=== PATIENT | female | born 1965 | race African-American/Black ===

== ENCOUNTER 2018-01-20 13:26 | Emergency (ER) | payer OTHER ==
[~2018-01-20] VITALS: Ht 167.6 cm; Wt 95.0 kg
[~2018-01-20 13:26] MED LIST: ATEN50TA PO; LISI-604 PO
[2018-01-20 15:10] LABS: BASOPHILS % 0.7 % (0.0-2.0); EOSINOPHILS % 0.6 % (0.0-5.0); HEMATOCRIT. 38.3 % (36.0-48.0); HEMOGLOBIN. 12.1 g/dL (12.0-16.0); LYMPHOCYTES % 27.1 % (20.0-50.0); MEAN CORPUSCULAR HEMOGLOBIN 22.6 pg (28.0-32.0); MEAN CORPUSCULAR VOLUME 71.5 fL (81.0-99.0); MEAN PLATELET VOLUME 10.1 fl (7.4-10.4); MONOCYTES % 6.8 % (2.0-8.0); NEUTROPHILS % 64.8 % (40.0-76.0); PLATELET 210 x1000/uL (130-400); RED BLOOD CELL COUNT 5.36 mill/uL (4.2-5.4)
[2018-01-20 15:13] LABS: CHLORIDE 105 mEq/L (98-107)
[2018-01-20 15:16] LABS: PROTHROMBIN TIME 10.3 sec (9.1-11.1)
[2018-01-20 15:26] LABS: ETHANOL BLOOD < 10 mg/dL
[2018-01-20] MEDS ORDERED: KETOROLAC 15MG/ML VIAL IV ONE (16:15)
[2018-01-20 16:32] VITALS: BP 158/97
== END 2018-01-20 16:32 | disposition home or self-care (01) ==
LOC: ER 13:26
DX: I16.0 Hypertensive urgency (principal); R51 Headache; Z79.899 Other long term (current) drug therapy
CPT/HCPCS: 36415; 70450; 80053; 85025; 85610; 93005; 99284; G0482

== ENCOUNTER 2019-10-15 17:27 | Emergency (ER) | payer OTHER ==
[~2019-10-15] VITALS: Ht 167.6 cm; Wt 101.0 kg
[2019-10-15] MEDS ORDERED: amlodipine (17:33)
[2019-10-15] MEDS ORDERED: atenolo (17:33)
[2019-10-15] MEDS ORDERED: AMLODIPINE 10MG TABLET PO ONE (19:30)
[2019-10-15 19:53] LABS: BASOPHILS % 1.4 % (0.0-2.0); EOSINOPHILS % 0.7 % (0.0-5.0); HEMATOCRIT. 37.7 % (36.0-48.0); HEMOGLOBIN. 11.9 g/dL (12.0-16.0); MEAN CORPUSCULAR HEMOGLOBIN 21.9 pg (28.0-32.0); MEAN CORPUSCULAR VOLUME 69.2 fL (81.0-99.0); MEAN PLATELET VOLUME 10.5 fl (7.4-10.4); MONOCYTES % 7.6 % (2.0-8.0); NEUTROPHILS % 63.3 % (40.0-76.0); PLATELET 178 x1000/uL (130-400); RED BLOOD CELL COUNT 5.45 mill/uL (4.2-5.4); RED CELL DISTRIBUTION WIDTH 17.2 % (11.6-14.6)
[2019-10-15 19:57] LABS: CHLORIDE 105 mEq/L (98-107)
[2019-10-15 20:17] LABS: PLATELET ESTIMATE NORMAL
[2019-10-15 21:12] VITALS: BP 159/97
== END 2019-10-15 21:14 | disposition home or self-care (01) ==
LOC: ER 17:27
DX: I10 Essential (primary) hypertension (principal); M10.9 Gout, unspecified; Z88.8 Allergy status to other drugs, medicaments and biological substances
CPT/HCPCS: 36415; 80053; 85025; 93005; 99284

== ENCOUNTER 2021-02-11 19:03 | Emergency (ER) | payer OTHER ==
[~2021-02-11] VITALS: Ht 177.8 cm; Wt 90.0 kg
[~2021-02-11 19:03] MED LIST changes: -LISI-604 PO; +amlodipine; +atenolo
[2021-02-11 19:51] VITALS: BP 179/111
== END 2021-02-11 20:36 | disposition home or self-care (01) ==
LOC: ER 19:03
DX: R42 Dizziness and giddiness (principal); I10 Essential (primary) hypertension; Z88.8 Allergy status to other drugs, medicaments and biological substances
CPT/HCPCS: 99283

== ENCOUNTER 2024-08-08 01:27 | Emergency (ER) | payer OTHER ==
[~2024-08-08] VITALS: Ht 172.7 cm; Wt 81.0 kg
[2024-08-08 01:29] VITALS: TEMP 36.8; O2SAT 100
[2024-08-08 02:44] LABS: BASOPHILS % 1.2 % (0.0-2.0); EOSINOPHILS % 0.9 % (0.0-5.0); HEMATOCRIT. 38.9 % (36.0-48.0); HEMOGLOBIN. 12.2 g/dL (12.0-16.0); LYMPHOCYTES % 31.5 % (20.0-50.0); MEAN CORPUSCULAR HEMOGLOBIN 21.8 pg (28.0-32.0); MEAN CORPUSCULAR HGB CONC 31.3 g/dL (31.0-37.0); MEAN CORPUSCULAR VOLUME 69.6 fL (81.0-99.0); MEAN PLATELET VOLUME 10.4 fl (7.4-10.4); MONOCYTES % 8.1 % (2.0-8.0); NEUTROPHILS % 58.3 % (40.0-76.0); PLATELET 188 x1000/uL (130-400); RED BLOOD CELL COUNT 5.58 mill/uL (4.2-5.4); RED CELL DISTRIBUTION WIDTH 15.9 % (11.6-14.6); WHITE BLOOD COUNT 10.3 x1000/uL (4.5-11.0)
[2024-08-08 02:50] VITALS: O2SAT 100
[2024-08-08 03:05] LABS: DIFFERENTIAL COMMENT 1
[2024-08-08 03:35] VITALS: BP 172/82; PULSE 88; RESP 16
[2024-08-08] MEDS: IBUPROFEN 800MG TABLET PO ONE (03:35)
[2024-08-08 03:39] LABS: CHLORIDE 102 mEq/L (98-107); POTASSIUM 3.2 mEq/L (3.5-5.1); SODIUM 139 mEq/L (136-145)
[2024-08-08 03:40] LABS: CARBON DIOXIDE 28 mEq/L (21-32)
[2024-08-08 03:41] LABS: CALCIUM 9.8 mg/dL (8.7-10.4)
[2024-08-08 03:45] LABS: CREATININE 0.8 mg/dL (0.6-1.0)
[2024-08-08 03:46] LABS: ETHANOL BLOOD < 10 mg/dL (<10); GLUCOSE 111 mg/dL (70-105); UREA NITROGEN BLOOD 17 mg/dL (9-23)
[2024-08-08 03:53] LABS: D-DIMER 0.46 mg/L FEU (<0.50); PROTHROMBIN TIME 10.6 sec (9.6-11.0)
[2024-08-08 04:44] LABS: TROPONIN I HIGH SENSITIVITY < 4 ng/L (3.0-34)
[2024-08-08] MEDS ORDERED: POTASSIUM CHLORIDE 20MEQ TABLET SR PO SCH (05:00)
[2024-08-08 05:25] LABS: TROPONIN I HIGH SENSITIVITY < 4 ng/L (3.0-34)
== END 2024-08-08 04:44 | disposition home or self-care (01) ==
LOC: ER 01:27
DX: R07.89 Other chest pain (principal); I10 Essential (primary) hypertension; Z79.899 Other long term (current) drug therapy; Z88.8 Allergy status to other drugs, medicaments and biological substances
CPT/HCPCS: 80048; 80320; 83880; 85025; 85379; 85610; 86850; 86900; 86901; 84484; 36415; 71045; 93005; 99285; Z7610 ×2; G0480